=== PATIENT | male | born 1940 | race Caucasian/White ===

== ENCOUNTER 2020-05-23 16:24 | Inpatient (IN) ==
[2020-05-24] MEDS ORDERED: Acetaminophen 325 MG TABLET PO PRN (04:16)
[2020-05-24] MEDS ORDERED: MOM Conc 10 ML UD.LIQ PO PRN (04:16)
[2020-05-24] MEDS ORDERED: Ipratropium/Albuterol Neb 3 ML IH PRN (04:16)
[2020-05-24] MEDS ORDERED: Atropine 1% Opth Drops 100 DROP/5 ML BOTTLE SL PRN (04:16)
[2020-05-24] MEDS ORDERED: GuaiFENesin Liq 200 MG/10 ML UDC PO PRN (04:16)
[2020-05-24] MEDS: *HR* OxyCODONE Immed Rel 5 MG TABLET PO PRN ×2 (04:51→20:54)
[2020-05-24 04:53] LABS: Basophils # 0.1 K/mcL (0.0-0.2); Basophils % 0.8 %; Eosinophils # 0.1 K/mcL (0.0-0.6); Eosinophils % 1.2 %; Hemoglobin 9.2 g/dL (12.9-16.9); Immature Granulocytes % 0.5 % (0-4); Lymphocytes % 12.9 %; Mean Corpuscular HGB Conc 30.7 g/dL (31.6-35.5); Mean Corpuscular Hemoglobin 26.9 pg (28.0-33.3); Mean Corpuscular Volume 87.7 fL (83.0-100.0); Mean Platelet Volume 9.3 fL (9.4-12.4); Monocytes # 0.7 K/mcL (0.0-1.3); Monocytes % 9.1 %; Neutrophils # 5.9 K/mcL (1.6-8.9); Platelet Count 324 K/mcL (140-400); Red Blood Count 3.42 M/mcL (4.19-5.50); Red Cell Distribution Width 16.1 % (11.5-14.5); Segmented Neutrophils % 75.5 %; White Blood Count 7.8 K/mcL (4.3-11.1)
[2020-05-24 05:07] LABS: Alanine Aminotransferase 8 Units/L (7-52); Albumin 3.2 g/dL (3.5-5.7); Alkaline Phosphatase 75 Units/L (34-104); Aspartate Amino Transferase 12 Units/L (13-39); BUN/Creatinine Ratio 26 (6-26); Bilirubin,Total 0.5 mg/dL (0.3-1.0); Blood Urea Nitrogen 22 mg/dL (8-23); Calcium 8.7 mg/dL (8.6-10.3); Carbon Dioxide 26 mEq/L (23-29); Chloride 99 mEq/L (98-107); Globulin 3.3 g/dL (2.4-3.5); Glucose 98 mg/dL (70-105); Osmolality,Calculated 279 (280-300); Potassium 4.3 mEq/L (3.5-5.1); Sodium 133 mEq/L (136-145); Total Protein 6.5 g/dL (6.4-8.9); eGFR For African Americans > 60 (> 60); eGFR For Non-African Americans > 60 (> 60)
[2020-05-24] MEDS: Budesonide/Formoterol 80/4.5 1 PUFF INH IH SCH ×2 (09:03→21:02)
[2020-05-24] MEDS: Nystatin POWDER 30 GM BOTTLE TP SCH ×2 (09:59→20:54)
[2020-05-24] MEDS ORDERED: Iron Sucrose Complex 200 MG in 0.9 % Sodium Chloride 100 ML IVPB ONE (10:00)
[2020-05-24] MEDS: Artificial Tears SOLN 15 ML BOTTLE BOTH EYES SCH ×2 (10:00→20:53)
[2020-05-24] MEDS: Ascorbic Acid 500 MG TABLET PO SCH (10:02)
[2020-05-24] MEDS: Cholecalciferol (D-3) 1,000 UNIT (25MCG) TABLET PO SCH (10:02)
[2020-05-24] MEDS: Lactulose Oral Soln 20 GM/30 ML UDC PO SCH ×2 (10:02→20:54)
[2020-05-24] MEDS: Multivit/Ca/Min/Fe/FA 1 TAB TABLET PO SCH (10:03)
[2020-05-24] MEDS: Cyanocobalamin (B-12) 1,000 MCG TABLET PO SCH (10:03)
[2020-05-24] MEDS: Doxycycline 100 MG CAPSULE PO SCH ×2 (10:03→20:54)
[2020-05-24] MEDS: *HR* Enoxaparin 40 MG/0.4 ML SYRINGE SQ SCH (10:03)
[2020-05-24] MEDS: *HR* LORazepam 0.5 MG TABLET PO SCH ×2 (10:03→20:54)
[2020-05-25] MEDS: *HR* OxyCODONE Immed Rel 5 MG TABLET PO PRN ×2 (05:02→18:01)
[2020-05-25] MEDS: Budesonide/Formoterol 80/4.5 1 PUFF INH IH SCH ×2 (09:13→19:46)
[2020-05-25] MEDS: *HR* Enoxaparin 40 MG/0.4 ML SYRINGE SQ SCH (09:41)
[2020-05-25] MEDS: Lactulose Oral Soln 20 GM/30 ML UDC PO SCH ×3 (09:41→21:43)
[2020-05-25] MEDS: Cholecalciferol (D-3) 1,000 UNIT (25MCG) TABLET PO SCH (09:43)
[2020-05-25] MEDS: Doxycycline 100 MG CAPSULE PO SCH ×2 (09:43→21:21)
[2020-05-25] MEDS: Multivit/Ca/Min/Fe/FA 1 TAB TABLET PO SCH (09:44)
[2020-05-25] MEDS: Cyanocobalamin (B-12) 1,000 MCG TABLET PO SCH (09:46)
[2020-05-25] MEDS: Ascorbic Acid 500 MG TABLET PO SCH (09:46)
[2020-05-25] MEDS: *HR* LORazepam 0.5 MG TABLET PO SCH ×2 (09:46→21:21)
[2020-05-25] MEDS: Artificial Tears SOLN 15 ML BOTTLE BOTH EYES SCH ×2 (09:47→21:48)
[2020-05-25] MEDS: Nystatin POWDER 30 GM BOTTLE TP SCH ×2 (09:47→21:43)
[2020-05-25] MEDS ORDERED: Cyanocobalamin (B-12) 1,000 MCG/ML VIAL SQ SCH (12:00)
[2020-05-26] MEDS: *HR* OxyCODONE Immed Rel 5 MG TABLET PO PRN ×3 (01:23→22:10)
[2020-05-26] MEDS: Cholecalciferol (D-3) 1,000 UNIT (25MCG) TABLET PO SCH (08:06)
[2020-05-26] MEDS: *HR* LORazepam 0.5 MG TABLET PO SCH ×2 (08:06→20:07)
[2020-05-26] MEDS: Doxycycline 100 MG CAPSULE PO SCH ×2 (08:06→20:07)
[2020-05-26] MEDS: Ascorbic Acid 500 MG TABLET PO SCH (08:06)
[2020-05-26] MEDS: Multivit/Ca/Min/Fe/FA 1 TAB TABLET PO SCH (08:06)
[2020-05-26] MEDS: Lactulose Oral Soln 20 GM/30 ML UDC PO SCH ×2 (08:06→20:07)
[2020-05-26] MEDS: Artificial Tears SOLN 15 ML BOTTLE BOTH EYES SCH ×2 (08:07→20:07)
[2020-05-26] MEDS: *HR* Enoxaparin 40 MG/0.4 ML SYRINGE SQ SCH (08:07)
[2020-05-26] MEDS: Nystatin POWDER 30 GM BOTTLE TP SCH ×2 (08:07→20:07)
[2020-05-26] MEDS: Budesonide/Formoterol 80/4.5 1 PUFF INH IH SCH ×2 (09:53→21:22)
[2020-05-26 10:25] LABS: Hematocrit 29.5 % (37.5-50.1); Hemoglobin 9.4 g/dL (12.9-16.9); Mean Corpuscular HGB Conc 31.9 g/dL (31.6-35.5); Mean Corpuscular Hemoglobin 27.4 pg (28.0-33.3); Mean Platelet Volume 9.5 fL (9.4-12.4); Platelet Count 319 K/mcL (140-400); Red Blood Count 3.43 M/mcL (4.19-5.50); Red Cell Distribution Width 16.4 % (11.5-14.5); White Blood Count 8.9 K/mcL (4.3-11.1)
[2020-05-26 10:52] LABS: Alanine Aminotransferase 7 Units/L (7-52); Alkaline Phosphatase 73 Units/L (34-104); Aspartate Amino Transferase 10 Units/L (13-39); BUN/Creatinine Ratio 24 (6-26); Bilirubin,Total 0.6 mg/dL (0.3-1.0); Blood Urea Nitrogen 17 mg/dL (8-23); Calcium 8.6 mg/dL (8.6-10.3); Carbon Dioxide 23 mEq/L (23-29); Chloride 103 mEq/L (98-107); Glucose 95 mg/dL (70-105); Osmolality,Calculated 275 (280-300); Potassium 3.7 mEq/L (3.5-5.1); Sodium 132 mEq/L (136-145); eGFR For African Americans > 60 (> 60); eGFR For Non-African Americans > 60 (> 60)
[2020-05-26] MEDS ORDERED: 0.9 % Sodium Chloride 1,000 ML IV ONE (11:55)
[2020-05-27] MEDS: Doxycycline 100 MG CAPSULE PO SCH ×4 (09:15→22:32)
[2020-05-27] MEDS: Ascorbic Acid 500 MG TABLET PO SCH (09:34)
[2020-05-27] MEDS: Multivit/Ca/Min/Fe/FA 1 TAB TABLET PO SCH (09:34)
[2020-05-27] MEDS: *HR* LORazepam 0.5 MG TABLET PO SCH ×2 (09:34→22:32)
[2020-05-27] MEDS: *HR* Enoxaparin 40 MG/0.4 ML SYRINGE SQ SCH (09:36)
[2020-05-27] MEDS: Artificial Tears SOLN 15 ML BOTTLE BOTH EYES SCH ×2 (09:38→22:32)
[2020-05-27] MEDS: Nystatin POWDER 30 GM BOTTLE TP SCH ×2 (09:38→22:33)
[2020-05-27] MEDS: Cholecalciferol (D-3) 1,000 UNIT (25MCG) TABLET PO SCH (09:39)
[2020-05-27] MEDS: Lactulose Oral Soln 20 GM/30 ML UDC PO SCH ×2 (09:56→22:32)
[2020-05-27] MEDS: Budesonide/Formoterol 80/4.5 1 PUFF INH IH SCH ×2 (10:13→20:19)
[2020-05-27] MEDS: Docusate Oral Soln 100 MG/10 ML UDC PO SCH ×2 (11:44→22:33)
[2020-05-27] MEDS: *HR* OxyCODONE Immed Rel 5 MG TABLET PO PRN (12:33)
[2020-05-27] MEDS: Cyanocobalamin (B-12) 1,000 MCG/ML VIAL SQ SCH (14:41)
[2020-05-27 19:09] LABS: Basophils # 0.1 K/mcL (0.0-0.2); Basophils % 0.8 %; Eosinophils # 0.4 K/mcL (0.0-0.6); Eosinophils % 4.2 %; Hemoglobin 9.4 g/dL (12.9-16.9); Immature Granulocytes % 0.7 % (0-4); Lymphocytes # 1.5 K/mcL (0.6-4.6); Lymphocytes % 17.1 %; Mean Corpuscular HGB Conc 31.3 g/dL (31.6-35.5); Mean Corpuscular Hemoglobin 27.5 pg (28.0-33.3); Mean Corpuscular Volume 87.7 fL (83.0-100.0); Mean Platelet Volume 9.1 fL (9.4-12.4); Monocytes # 0.6 K/mcL (0.0-1.3); Monocytes % 6.9 %; Neutrophils # 6.1 K/mcL (1.6-8.9); Platelet Count 321 K/mcL (140-400); Red Blood Count 3.42 M/mcL (4.19-5.50); Red Cell Distribution Width 16.5 % (11.5-14.5); Segmented Neutrophils % 70.3 %; White Blood Count 8.7 K/mcL (4.3-11.1)
[2020-05-27 19:28] LABS: Alanine Aminotransferase 7 Units/L (7-52); Alkaline Phosphatase 76 Units/L (34-104); Aspartate Amino Transferase 10 Units/L (13-39); BUN/Creatinine Ratio 23 (6-26); Bilirubin,Total 0.5 mg/dL (0.3-1.0); Blood Urea Nitrogen 17 mg/dL (8-23); Calcium 8.5 mg/dL (8.6-10.3); Carbon Dioxide 26 mEq/L (23-29); Chloride 106 mEq/L (98-107); Glucose 98 mg/dL (70-105); Osmolality,Calculated 286 (280-300); Potassium 3.7 mEq/L (3.5-5.1); Sodium 137 mEq/L (136-145); eGFR For African Americans > 60 (> 60); eGFR For Non-African Americans > 60 (> 60)
[2020-05-28] MEDS: Doxycycline 100 MG CAPSULE PO SCH ×2 (08:26→22:30)
[2020-05-28] MEDS: Cholecalciferol (D-3) 1,000 UNIT (25MCG) TABLET PO SCH (08:26)
[2020-05-28] MEDS: Multivit/Ca/Min/Fe/FA 1 TAB TABLET PO SCH (08:27)
[2020-05-28] MEDS: Lactulose Oral Soln 20 GM/30 ML UDC PO SCH ×2 (08:27→22:30)
[2020-05-28] MEDS: *HR* Enoxaparin 40 MG/0.4 ML SYRINGE SQ SCH (08:27)
[2020-05-28] MEDS: Ascorbic Acid 500 MG TABLET PO SCH (08:27)
[2020-05-28] MEDS: *HR* LORazepam 0.5 MG TABLET PO SCH ×2 (08:27→22:30)
[2020-05-28] MEDS: Docusate Oral Soln 100 MG/10 ML UDC PO SCH ×2 (08:27→22:33)
[2020-05-28] MEDS: Cyanocobalamin (B-12) 1,000 MCG/ML VIAL SQ SCH (08:28)
[2020-05-28] MEDS: Nystatin POWDER 30 GM BOTTLE TP SCH ×2 (08:34→22:33)
[2020-05-28] MEDS: Artificial Tears SOLN 15 ML BOTTLE BOTH EYES SCH ×2 (08:35→22:34)
[2020-05-28] MEDS: Budesonide/Formoterol 80/4.5 1 PUFF INH IH SCH ×2 (10:09→21:09)
[2020-05-29] MEDS: Budesonide/Formoterol 80/4.5 1 PUFF INH IH SCH ×2 (08:08→20:21)
[2020-05-29] MEDS: *HR* Enoxaparin 40 MG/0.4 ML SYRINGE SQ SCH (10:53)
[2020-05-29] MEDS: Lactulose Oral Soln 20 GM/30 ML UDC PO SCH ×2 (10:53→21:20)
[2020-05-29] MEDS: *HR* LORazepam 0.5 MG TABLET PO SCH ×2 (10:53→21:20)
[2020-05-29] MEDS: Cyanocobalamin (B-12) 1,000 MCG/ML VIAL SQ SCH (10:53)
[2020-05-29] MEDS: Docusate Oral Soln 100 MG/10 ML UDC PO SCH ×2 (10:53→21:20)
[2020-05-29] MEDS: Doxycycline 100 MG CAPSULE PO SCH ×2 (10:54→21:20)
[2020-05-29] MEDS: Ascorbic Acid 500 MG TABLET PO SCH (10:54)
[2020-05-29] MEDS: Cholecalciferol (D-3) 1,000 UNIT (25MCG) TABLET PO SCH (10:54)
[2020-05-29] MEDS: Nystatin POWDER 30 GM BOTTLE TP SCH ×2 (10:54→21:21)
[2020-05-29] MEDS: Multivit/Ca/Min/Fe/FA 1 TAB TABLET PO SCH (10:54)
[2020-05-29] MEDS: Artificial Tears SOLN 15 ML BOTTLE BOTH EYES SCH ×2 (10:55→21:21)
[2020-05-30] MEDS: Budesonide/Formoterol 80/4.5 1 PUFF INH IH SCH (07:21)
[2020-05-30] MEDS: Lactulose Oral Soln 20 GM/30 ML UDC PO SCH (09:49)
[2020-05-30] MEDS: Docusate Oral Soln 100 MG/10 ML UDC PO SCH (09:49)
[2020-05-30] MEDS: *HR* Enoxaparin 40 MG/0.4 ML SYRINGE SQ SCH (09:49)
[2020-05-30] MEDS: Doxycycline 100 MG CAPSULE PO SCH (09:50)
[2020-05-30] MEDS: *HR* LORazepam 0.5 MG TABLET PO SCH (09:50)
[2020-05-30] MEDS: Cholecalciferol (D-3) 1,000 UNIT (25MCG) TABLET PO SCH (09:50)
[2020-05-30] MEDS: Multivit/Ca/Min/Fe/FA 1 TAB TABLET PO SCH (09:50)
[2020-05-30] MEDS: Cyanocobalamin (B-12) 1,000 MCG/ML VIAL SQ SCH (09:50)
[2020-05-30] MEDS: Ascorbic Acid 500 MG TABLET PO SCH (09:50)
[2020-05-30] MEDS: Artificial Tears SOLN 15 ML BOTTLE BOTH EYES SCH (09:51)
[2020-05-30] MEDS: Nystatin POWDER 30 GM BOTTLE TP SCH (09:51)
[2020-05-30 17:11] VITALS: BP 136/77
== END 2020-05-30 18:02 | disposition home health service (06) | DRG 177 ==
LOC: INPGRE 22:19
PROVIDERS: ADMIT Family Medicine; ATTEND Family Medicine